=== PATIENT | male | born 1995 | race Caucasian/White ===

== ENCOUNTER 2016-12-06 15:51 | Emergency (ER) | payer BC, OTHER ==
[2016-12-06 16:00] VITALS: TEMP 98.4; BMI 27.8
[2016-12-06] MEDS ORDERED: CYCLOBENZAPRINE HCL 10 MG TABLET (FP) PO ONE (17:28)
[2016-12-06] MEDS ORDERED: KETOROLAC TROMETHAMINE 30 MG/1 ML VIAL IVPUSH ONE (17:28)
[2016-12-06] MEDS ORDERED: SODIUM CHLORIDE 1,000 ML IV STA (17:28)
[2016-12-06] MEDS ORDERED: CYCLOBENZAPRINE HCL 10 MG TABLET (FP) ONE (17:33)
[2016-12-06] MEDS ORDERED: KETOROLAC TROMETHAMINE 30 MG/1 ML VIAL ONE (17:33)
--- NOTE | 2016-12-06 17:59 | PDOC ---
History of Present Illness - General History Source: Patient, Family (Father) Exam Limitations: No Limitations - History of Present Illness Initial Comments: 12/06/16 18:10 The patient is a 20 year old male and presenting with his father, with no significant past medical history, who presents to the emergency department with bilateral mid back pain since this morning. He states that when he woke up this morning he could not move properly because of the pain. He describes his pain as moderate, with radiation to his chest. He also states that certain movements exacerbate his pain. He reports that he got his left lower wisdom teeth removed 2 days ago and is currently on amoxicillin and ibuprofen. He notes that he had sexual intercourse yesterday for which he did lift his girlfriend but did not report any pain at the time. He states that he also did help his mother with a heavy box, but did not report any pain at the time. He also notes that he does smoke marijuana and smoked marijuana this morning. The patient denies chest pain, shortness of breath, headache and dizziness. Denies fever, chills, nausea, vomit, diarrhea and constipation. Denies dysuria, frequency, urgency and hematuria. Allergies: None Past surgical history: None reported Social history: Cigarette use, marijuana use and alcohol use <Sterling Duarte - Last Filed: 12/06/16 18:17> - General History Source: Patient Exam Limitations: No Limitations <Leonid Fleming - Last Filed: 12/06/16 19:17> - General Chief Complaint: Back Pain Stated Complaint: BACK PAIN Time Seen by Provider: 12/06/16 15:53 Past History <Sterling Duarte - Last Filed: 12/06/16 18:17> - Past Medical History Other medical history: denies - Psycho/Social/Smoking Cessation Hx Anxiety: No Suicidal Ideation: No Smoking History: Current every day smoker Number of Cigarettes Smoked Daily: 20 Information on smoking cessation initiated: Yes 'Breaking Loose' booklet given: 10/22/13 Hx Alcohol Use: Yes (SOCIAL) Drug/Substance Use Hx: Yes Substance Use Type: Marijuana <Leonid Fleming - Last Filed: 12/06/16 19:17> - Past Medical History Allergies/Adverse Reactions: Allergies Allergy/AdvReac Type Severity Reaction Status Date / Time No Known Allergies Allergy Verified 12/06/16 15:55 Home Medications: Ambulatory Orders Amoxicillin - [Amoxicillin 500mg Capsule -] 500 mg PO TID 12/06/16 Cyclobenzaprine HCl [Flexeril -] 10 mg PO TID PRN #21 tablet 12/06/16 Naproxen [Naprosyn -] 500 mg PO BID PRN #14 tablet 12/06/16 Review of Systems - Review of Systems Able to Perform ROS?: Yes Comments:: 12/06/16 18:11 GENERAL/CONSTITUTIONAL: No fever or chills. No weakness. HEAD, EYES, EARS, NOSE AND THROAT: No change in vision. No ear pain or discharge. No sore throat. CARDIOVASCULAR: No chest pain or shortness of breath RESPIRATORY: No cough, wheezing, or hemoptysis. GASTROINTESTINAL: No nausea, vomiting, diarrhea or constipation. GENITOURINARY: No dysuria, frequency, or change in urination. MUSCULOSKELETAL: +Mid back pain. No joint or muscle swelling or pain. No neck pain. SKIN: No rash NEUROLOGIC: No headache, vertigo, loss of consciousness, or change in strength/ sensation. ENDOCRINE: No increased thirst. No abnormal weight change HEMATOLOGIC/LYMPHATIC: No anemia, easy bleeding, or history of blood clots. ALLERGIC/IMMUNOLOGIC: No hives or skin allergy. <Sterling Duarte - Last Filed: 12/06/16 18:17> *Physical Exam - Vital Signs Last Vital Signs Temp Pulse Resp BP Pulse Ox 98.4 F 65 18 156/79 100 12/06/16 15:56 12/06/16 15:56 12/06/16 15:56 12/06/16 15:56 12/06/16 15:56 - Physical Exam Comments: 12/06/16 18:11 GENERAL: Awake, alert, and fully oriented, in no acute distress HEAD: No signs of trauma, normocephalic, atraumatic EYES: PERRLA, EOMI, sclera anicteric, conjunctiva clear ENT: Auricles normal inspection, hearing grossly normal, nares patent, oropharynx clear without exudates. Moist mucosa NECK: Normal ROM, supple, no lymphadenopathy, JVD, or masses LUNGS: No distress, speaks full sentences, clear to auscultation bilaterally HEART: Regular rate and rhythm, normal S1 and S2, no murmurs, rubs or gallops, peripheral pulses normal and equal bilaterally. ABDOMEN: Soft, nontender, normoactive bowel sounds. No guarding, no rebound. No masses EXTREMITIES: Normal inspection, Normal range of motion, no edema. No clubbing or cyanosis. NEUROLOGICAL: Cranial nerves II through XII grossly intact. Normal speech, normal gait, no focal sensorimotor deficits SKIN: Warm, Dry, normal turgor, no rashes or lesions noted. <Sterling Duarte - Last Filed: 12/06/16 18:17> - Vital Signs Last Vital Signs Temp Pulse Resp BP Pulse Ox 98.4 F 65 18 156/79 100 12/06/16 15:56 12/06/16 15:56 12/06/16 15:56 12/06/16 15:56 12/06/16 15:56 <Leonid Fleming - Last Filed: 12/06/16 19:17> Heart Score/ECG Review #1 ECG reviewed & interpreted by me at: 17:35 12/06/16 17:45 NSR 59, no std/naina, good R wave progression, QTC 390 msec. normal axis, normal intervals. <Leonid Fleming - Last Filed: 12/06/16 19:17> ED Treatment Course - LABORATORY CBC & Chemistry Diagram: 12/06/16 17:40 12/06/16 17:40 - RADIOLOGY Radiograph Interpretation: 12/06/16 18:11 CT chest without contrast Reviewed by Dr. Quique Garza Impression: No evidence of pneumothorax or pneumomediastinum. 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 There is a calcification present and a thymoma cannot be excluded. No acute pathology within the chest. - Medications Given in the ED: ED Medications Discontinued Medications Generic Name Dose Route Start Last Admin Trade Name Freq PRN Reason Stop Dose Admin Cyclobenzaprine HCl 10 mg 12/06/16 17:28 12/06/16 17:54 Flexeril - PO 12/06/16 17:29 10 mg ONCE ONE Administration Ketorolac Tromethamine 30 mg 12/06/16 17:28 12/06/16 17:53 Toradol Injection - IVPUSH 12/06/16 17:29 30 mg ONCE ONE Administration <Sterling Duarte - Last Filed: 12/06/16 18:17> - LABORATORY CBC & Chemistry Diagram: 12/06/16 17:40 12/06/16 17:40 <Leonid Fleming - Last Filed: 12/06/16 19:17> Medical Decision Making - Medical Decision Making 12/06/16 17:47 A portion of this note was documented by scribe services under my direction. I have reviewed the details of the note, within reason, and agree with the documentation with the following case summary and management plan written by me. Patient treated in the ED. Nursing notes are reviewed and incorporated into the medical decision-making. Vital signs reviewed. Peripheral IV access obtained by the nurse, laboratory studies are drawn and sent, reviewed and interpreted by myself. Vital Signs Temp Pulse Resp BP Pulse Ox 98.4 F 65 18 156/79 100 12/06/16 15:56 12/06/16 15:56 12/06/16 15:56 12/06/16 15:56 12/06/16 15:56 20-year-old male with past medical history of marijuana use presents to the emergency department for reproducible back pain. 2 days ago, the patient had his left lower molar. Was started on ibuprofen and amoxicillin. He reports adherence. Yesterday, the patient had a vigorous sex session and did not note any pain at the time. Woke up with lower back pain reproducible with twisting. Reported the pain at cause him to feel short of breath. Denies midsternal chest pressure or abdominal pain. First-time episode. Had taken ibuprofen earlier in the morning with minimal effect. The patient had a CAT scan of the chest performed. Demonstrated no acute findings other than potential incidental thymoma. I still suspect that this is likely musculoskeletal pain. We'll trial Toradol and Flexeril. I explain to the patient and to his father regarding this incidental finding. I will give a referral to a [facility] oncologist for further evaluation. 12/06/16 19:12 CBC, BMP 12/06/16 17:40 12/06/16 17:40 CMP Sodium 140 mmol/L (136-145) 12/06/16 17:40 Potassium 4.3 mmol/L (3.5-5.1) 12/06/16 17:40 Chloride 105 mmol/L (98-107) 12/06/16 17:40 Carbon Dioxide 26 mmol/L (21-32) 12/06/16 17:40 Anion Gap 9 (8-16) 12/06/16 17:40 BUN 10 mg/dL (7-18) 12/06/16 17:40 Creatinine 0.8 mg/dL (0.7-1.3) 12/06/16 17:40 Creat Clearance w eGFR > 60 (>60) 12/06/16 17:40 Random Glucose 85 mg/dL (74-106) 12/06/16 17:40 Calcium 9.3 mg/dL (8.5-10.1) 12/06/16 17:40 Total Bilirubin 1.0 mg/dL (0.2-1.0) 12/06/16 17:40 AST 18 U/L (15-37) 12/06/16 17:40 ALT 31 U/L (12-78) 12/06/16 17:40 Alkaline Phosphatase 116 U/L (45-117) 12/06/16 17:40 Creatine Kinase 124 IU/L (39-308) 12/06/16 17:40 Troponin I < 0.02 ng/ml (0.00-0.05) 12/06/16 17:40 Total Protein 7.6 g/dl (6.4-8.2) 12/06/16 17:40 Albumin 4.4 g/dl (3.4-5.0) 12/06/16 17:40 Labs reviewed. The patient reports some intermittent relief. Again, I suspect that this is an MSK problem. Patient is aware of thymus finding. Patient will follow up with [facility]. Pt given a copy of the CT scan. I discussed the physical exam findings, ancillary test results and final diagnoses with the patient. I answered all of the patient's questions. The patient was satisfied with the care received and felt comfortable with the discharge plan and treatment plan. The patient will call their primary care physician within 24 hours to arrange follow-up and will return to the Emergency Department with any new, persistant or worsening symptoms. <Leonid Fleming - Last Filed: 12/06/16 19:17> *DC/Admit/Observation/Transfer - Attestations Scribe Attestion: 12/06/16 18:11 Documentation prepared by Sterling Duarte, acting as medical appointment clerk for Leonid Fleming MD. <Sterling Duarte - Last Filed: 12/06/16 18:17> - Discharge Dispostion Admit: No <Leonid Fleming - Last Filed: 12/06/16 19:17> Diagnosis at time of Disposition: Back pain Qualifiers: Back pain location: back pain in other location Chronicity: acute Qualified Code(s): M54.9 - Dorsalgia, unspecified - Discharge Dispostion Disposition: HOME Condition at time of disposition: Stable - Prescriptions Prescriptions: Cyclobenzaprine HCl [Flexeril -] 10 mg PO TID PRN #21 tablet PRN Reason: Muscle Spasm Naproxen [Naprosyn -] 500 mg PO BID PRN #14 tablet PRN Reason: Pain - Referrals Referrals: Bharathi Serrato MD [Primary Care Provider] - Barby Tobin MD [Staff Physician] - - Patient Instructions Printed Discharge Instructions: DI for Thoracic Back Pain Additional Instructions: Please take 500 mg naproxen every 12 hours as needed for pain. For additional relief, take a tablet of flexeril every 8 hours as needed for muscle spasm. This medication may make you drowsy, so please do not drink or drive. Given the CT scans and finding of the thymus, please follow up with a [facility]. Call to schedule an appointment. It may take several days before your symptoms improve.
[2016-12-06 18:07] LABS: BASOPHIL 0.6 % (0-2.0); EOSINOPHIL 1.3 % (0-4.5); MCHC 34.2 g/dl (32.0-35.9); MEAN CELL VOLUME 90.8 fl (80-96); MEAN PLT VOLUME 8.2 fl (7.5-11.1); NEUTROPHILS 72.6 % (42.8-82.8); PLATELET COUNT 228 K/MM3 (134-434); RDW 13.1 % (11.9-15.9)
[2016-12-06 18:34] LABS: ALBUMIN 4.4 g/dl (3.4-5.0); ANION GAP 9 (8-16); CALCIUM 9.3 mg/dL (8.5-10.1); CO2 26 mmol/L (21-32); CREATININE 0.8 mg/dL (0.7-1.3); GLUCOSE,RANDOM 85 mg/dL (74-106); SGOT/AST 18 U/L (15-37); SGPT/ALT 31 U/L (12-78); TOT PROT 7.6 g/dl (6.4-8.2)
[2016-12-06 18:36] LABS: ALK PHOS 116 U/L (45-117); TROPONIN I < 0.02 ng/ml (0.00-0.05)
[2016-12-06 20:06] VITALS: BP 148/78; PULSE 60
--- NOTE | 2016-12-07 16:13 | EKG ---
Test Reason : Blood Pressure : / mmHG Vent. Rate : 059 BPM Atrial Rate : 059 BPM P-R Int : 130 ms QRS Dur : 092 ms QT Int : 394 ms P-R-T Axes : 057 008 046 degrees QTc Int : 390 ms SINUS BRADYCARDIA OTHERWISE NORMAL ECG WHEN COMPARED WITH ECG OF 02-JUL-2010 21:59, NO SIGNIFICANT CHANGE WAS FOUND Confirmed by TYSHAWN FLEMING MD ([id number]) on 12/07/2016 4:13:32 PM Referred By: Confirmed By:TYSHAWN FLEMING MD
== END 2016-12-06 19:30 | disposition home or self-care (01) ==
LOC: JER 15:51
PROC: 3E0333Z Introduction of Anti-inflammatory into Peripheral Vein, Percutaneous Approach (ICD-10-PCS; principal; 2016-12-06)
PROC: 3E0337Z Introduction of Electrolytic and Water Balance Substance into Peripheral Vein, Percutaneous Approach (ICD-10-PCS; 2016-12-06)
DX: M54.9 Dorsalgia, unspecified (principal); F17.210 Nicotine dependence, cigarettes, uncomplicated
CPT/HCPCS: 36415; 71250-TC; 80053; 82550; 84484; 85025; 93005; 93010; 99283-25